=== PATIENT | male | born 1930 | race Caucasian/White ===

== ENCOUNTER 2020-06-17 13:38 | Emergency (ER) | payer MEDICARE ==
[~2020-06-17] VITALS: Ht 180.3 cm; Wt 75.0 kg
[2020-06-17 13:38] VITALS: BP 189/83
[2020-06-17] MEDS ORDERED: OXYBUTYNIN CHLORIDE 5 MG TABLET PO SCH (15:30)
[2020-06-17] MEDS ORDERED: ACETAMINOPHEN 500 MG TABLET PO ONE (15:30)
[2020-06-17 15:38] LABS: BILIRUBIN,URINE NEGATIVE (NEG); CLARITY,URINE CLOUDY; COLOR,URINE YELLOW; NITRITE,URINE NEGATIVE (NEG); PH,URINE 6.5 (<5.0-8.0); PROTEIN,URINE 100 mg/dL (NEG-TRACE); UROBILINOGEN,URINE 0.2 mg/dL (0.2 mg/dL)
--- NOTE | 2020-06-17 15:50 | ED.ADGEN ---
Past Medical History Past Medical History: CAD, Cancer, COPD, Diabetes-Type II, Hypertension, Other Additional Past Medical Histor: BLADDER CA Past Surgical History: Appendectomy, Other Additional Past Surgical Histo: SUPRAPUBIC CATH, R. ROTATOR CUFF Smoking Status: Former Smoker Alcohol Use: None General Adult EDM: Chief Complaint: URINE CATHETER PROBLEM HPI: HPI: Patient is an 89-year-old male who presents to the emergency room with a clogged suprapubic catheter. Patient last had it changed 2 weeks ago. He has had the catheter for the last 3 years. He states that occasionally it will get clogged before its normal change date. He does changed every 3 weeks. He is having some suprapubic abdominal pain. He denies any other complaints at this time. Review of Systems: Review of Systems: Complete ROS is negative unless otherwise documented in HPI Current Medications: Current Medications Medications (Trade) Dose Ordered Sig/Bárbara Start Time Stop Time Status Last Admin Dose Admin Acetaminophen (Tylenol) 1,000 mg 1X ONCE 06/17/20 15:30 06/17/20 15:31 DC Oxybutynin Chloride (Ditropan) 5 mg 1X 06/17/20 15:30 Allergies: Allergies: Allergies Coded Allergies Type Severity Reaction Last Updated Verified No Known Drug Allergies 06/17/20 No Physical Exam: PE: General: Awake, alert, NAD. Well Nourished, well hydrated. Cooperative HEENT: Atraumatic, EOMI, PERRL, airway patent, moist oral mucosa Neck: Supple, trachea midline Respiratory: CTA bilaterally, normal effort, no wheezing/crackles CV: RRR, no murmur, cap refill <2 GI: Soft, distended bladder with tenderness upon palpation, nontender, no ma sses, suprapubic catheter in place MSK: No obvious deformities Skin: Warm, dry, intact Neuro: A&O x3, speech NL, sensory and motor grossly intact, no focal deficits Psych: Normal affect, normal mood, not suicidal or homicidal Current Patient Data: Labs: Laboratory Tests Test 06/17/20 15:25 Urine Collection Type Unknown Urine Color Yellow Urine Clarity Cloudy Urine pH 6.5 (<5.0-8.0) Urine Specific [place] 1.015 (1.000-1.030) Urine Protein 100 mg/dL (NEG-TRACE) Urine Glucose (UA) Negative mg/dL (NEG) Urine Ketones (Stick) Negative mg/dL (NEG) Urine Blood Moderate (NEG) Urine Nitrite Negative (NEG) Urine Bilirubin Negative (NEG) Urine Urobilinogen Dipstick 0.2 mg/dL (0.2 mg/dL) Urine Leukocyte Esterase Large (NEG) Urine RBC 20-40 /HPF (0-2) Urine WBC Tntc /HPF (0-4) Urine Bacteria 0 /HPF (0-FEW) Vital Signs: Vital Signs Date Time Temp Pulse Resp B/P (MAP) Pulse Ox O2 Delivery O2 Flow Rate FiO2 06/17/20 13:38 97.7 74 20 189/83 (118) 98 Room Air 97.7 EKG: EKG: [] Heart Score: Risk Factors: Risk Factors: DM, Current or recent (<one month) smoker, HTN, HLP, family history of CAD, obesity. Risk Scores: Score 0 - 3: 2.5% MACE over next 6 weeks - Discharge Home Score 4 - 6: 20.3% MACE over next 6 weeks - Admit for Clinical Observation Score 7 - 10: 72.7% MACE over next 6 weeks - Early Invasive Strategies Radiology/Procedures: Radiology/Procedures: [] Course & Med Decision Making: Course & Med Decision Making Pertinent Labs and Imaging studies reviewed. (See chart for details) Patient is an 89-year-old male who presents to the emergency room complaining of suprapubic abdominal pain and a clogged suprapubic catheter. Upon my evaluation patient does have a clogged catheter. Unable to flush it at this time. New catheter was placed without difficulty. Around 500 mL drained from the bladder after suprapubic catheter was placed. He did have some bladder sp asms after suprapubic catheter is placed but does not have any additional pain afterwards. There is no difficulty with placing the catheter. Patient's test results and vitals while in the ED were fully reviewed and discussed with the patient. Patient is stable and at this time does not need admission to the hospital. We have discussed strict return precautions and the importance of following up with their Primary Care Physician. Patient stated understanding and was given an opportunity to ask any questions. Patient is in agreement with plan. Tirso Disclaimer: Tirso Disclaimer: This electronic medical record was generated, in whole or in part, using a voice recognition dictation system. Departure Departure Impression: Primary Impression: Suprapubic catheter dysfunction Disposition: 01 DC HOME SELF CARE/HOMELESS Condition: STABLE Referrals: JONES UREÑA MD (PCP) Patient Instructions: Suprapubic Catheter Home Guide, Suprapubic Catheter Replacement, Care After Scripts Nitrofurantoin Monohyd/M-Cryst (MACROBID 100 MG CAPSULE) 100 Mg Capsule 1 CAP PO BID for 5 Days, #10 CAP 0 Refills Prov: MARY VALDEZ MD 06/17/20 MARY VALDEZ MD Jun 17, 2020 15:50
[2020-06-17 15:55] LABS: BACTERIA,URINE 0 /HPF (0-FEW); RBC,URINE 20-40 /HPF (0-2); WBC,URINE TNTC /HPF (0-4)
[2020-06-17] MEDS ORDERED: NITR100C62 PO (16:16)
== END 2020-06-17 17:24 | disposition home or self-care (01) ==
LOC: ER 13:38
DX: R10.2 Pelvic and perineal pain (principal); J44.9 Chronic obstructive pulmonary disease, unspecified; E11.9 Type 2 diabetes mellitus without complications; I10 Essential (primary) hypertension; Z90.89 Acquired absence of other organs; Z98.890 Other specified postprocedural states; Z87.891 Personal history of nicotine dependence
CPT/HCPCS: 81001; 99284

== ENCOUNTER 2020-08-15 19:02 | Emergency (ER) | payer MEDICARE ==
[~2020-08-15] VITALS: Ht 180.3 cm; Wt 71.4 kg
[~2020-08-15 19:02] MED LIST: NITR100C62 PO
[2020-08-15 19:57] LABS: BILIRUBIN,URINE NEGATIVE (NEG); CLARITY,URINE CLOUDY; COLOR,URINE YELLOW; NITRITE,URINE POSITIVE (NEG); PH,URINE 7.5 (<5.0-8.0); PROTEIN,URINE 100 mg/dL (NEG-TRACE)
--- NOTE | 2020-08-15 20:06 | PHYS DOC ---
Past Medical History Past Medical History: CAD, Cancer, COPD, Diabetes-Type II, Hypertension, Other Additional Past Medical Histor: BLADDER CA Past Surgical History: Appendectomy, Other Additional Past Surgical Histo: SUPRAPUBIC CATH, R. ROTATOR CUFF Smoking Status: Former Smoker Alcohol Use: None General Adult EDM: Chief Complaint: URINE CATHETER PROBLEM HPI: HPI: Patient is a 89 year old male past medical history of indwelling Sainz catheter presents with a chief complaint of suprapubic Sainz catheter dysfunction. Patient states around 1430 hrs. Sainz catheter would not drain. Patient had associated suprapubic abdominal pressure. On arrival nursing attempted to flush the Sainz and was unsuccessful. Sainz was replaced by nursing patient had urine drainage and immediate relief of pain. No history of fevers or chills. Review of Systems: Review of Systems: Constitutional: Denies fever or chills. [] Eyes: Denies change in visual acuity. [] HENT: Denies nasal congestion or sore throat. [] Respiratory: Denies cough or shortness of breath. [] Cardiovascular: Denies chest pain or edema. [] GI: Denies abdominal pain, nausea, vomiting, bloody stools or diarrhea. [] : Denies dysuria. [] Positive urinary retention Musculoskeletal: Denies back pain or joint pain. [] Integument: Denies rash. [] Neurologic: Denies headache, focal weakness or sensory changes. [] Endocrine: Denies polyuria or polydipsia. [] Lymphatic: Denies swollen glands. [] Psychiatric: Denies depression or anxiety. [] Heart Score: C/O Chest Pain: N/A Risk Factors: Risk Factors: DM, Current or recent (<one month) smoker, HTN, HLP, family history of CAD, obesity. Risk Scores: Score 0 - 3: 2.5% MACE over next 6 weeks - Discharge Home Score 4 - 6: 20.3% MACE over next 6 weeks - Admit for Clinical Observation Score 7 - 10: 72.7% MACE over next 6 weeks - Early Invasive Strategies Allergies: Allergies: Allergies Coded Allergies Type Severity Reaction Last Updated Verified No Known Drug Allergies 06/17/20 No Physical Exam: PE: General: alert, no acute distress. Skin: warm, dry and intact. Head:: Normocephalic, atraumatic. Neck: Trachea midline. Eyes: EOMI, Normal conjunctiva, No drainage CARDIOVASCULAR: Regular rate and rhythm RESPIRATORY: No respiratory distress Back: Full range of motion. MUSCULOSKELETAL: Full range of motion of bilateral upper and lower extremities. GASTROINTESTINAL: Abdomen soft without rebound or guarding. Positive suprapubic tenderness NEUROLOGICAL: Alert and noted to person, place and time. No neurological deficits observed Psychiatric: Cooperative. Normal judgment Current Patient Data: Vital Signs: Vital Signs Date Time Temp Pulse Resp B/P (MAP) Pulse Ox O2 Delivery O2 Flow Rate FiO2 08/15/20 19:15 98.1 67 34 195/95 (128) 98 Room Air 98.1 EKG: EKG: [] Radiology/Procedures: Radiology/Procedures: [] Course & Med Decision Making: Course & Med Decision Making Pertinent Labs and Imaging studies reviewed. (See chart for details) [] Dragon Disclaimer: Dragon Disclaimer: This electronic medical record was generated, in whole or in part, using a voice recognition dictation system. Departure Departure Impression: Primary Impression: Obstructed Sainz catheter Disposition: HOME / SELF CARE / HOMELESS Condition: STABLE Referrals: JONES UREÑA MD (PCP) Patient Instructions: Sainz Catheter Care, Adult LAVELL GRACIA DO Aug 15, 2020 20:06
[2020-08-15 20:14] LABS: BACTERIA,URINE MANY /HPF (0-FEW); WBC,URINE TNTC /HPF (0-4)
[2020-08-15 20:22] VITALS: BP 200/85
== END 2020-08-15 20:33 | disposition home or self-care (01) ==
LOC: ER 19:02
DX: T83.091A Other mechanical complication of indwelling urethral catheter, initial encounter (principal); I11.9 Hypertensive heart disease without heart failure; J44.9 Chronic obstructive pulmonary disease, unspecified; E11.9 Type 2 diabetes mellitus without complications; Z90.89 Acquired absence of other organs; Z98.890 Other specified postprocedural states; Z87.891 Personal history of nicotine dependence; Z85.9 Personal history of malignant neoplasm, unspecified; Y92.89 Other specified places as the place of occurrence of the external cause
CPT/HCPCS: 51702; 81001; 87086; 99283

== ENCOUNTER 2021-03-07 18:26 | Emergency (ER) | payer MEDICARE ==
[~2021-03-07] VITALS: Ht 182.9 cm; Wt 71.0 kg
[2021-03-07 20:43] LABS: BILIRUBIN,URINE NEGATIVE (NEG); CLARITY,URINE TURBID; COLOR,URINE YELLOW; NITRITE,URINE POSITIVE (NEG); PROTEIN,URINE >=300 mg/dL (NEG-TRACE); UROBILINOGEN,URINE 0.2 mg/dL (0.2 mg/dL)
[2021-03-07 20:52] LABS: AMORPHOUS SEDIMENT,UR PRESENT /HPF; HYALINE CASTS, URINE MODERATE /HPF
[2021-03-07 20:53] LABS: BACTERIA,URINE MANY /HPF (0-FEW); RBC,URINE 20-40 /HPF (0-2); WBC,URINE >40 /HPF (0-4)
[2021-03-07] MEDS ORDERED: CIPROFLOXACIN HCL 250 MG TABLET. PO ONE (21:15)
[2021-03-07] MEDS ORDERED: LEVO750T5 PO (21:24)
[2021-03-07] MEDS ORDERED: CIPR500T94 PO (21:24)
--- NOTE | 2021-03-07 21:24 | PHYS DOC ---
Past Medical History Past Medical History: CAD, Cancer, COPD, Diabetes-Type II, Hypertension, Other Additional Past Medical Histor: BLADDER CA Past Surgical History: Appendectomy, Other Additional Past Surgical Histo: SUPRAPUBIC CATH, R. ROTATOR CUFF Smoking Status: Former Smoker Alcohol Use: None General Adult EDM: Chief Complaint: URINE CATHETER PROBLEM HPI: HPI: Patient is a 89-year-old male presents emergency department with chief complaint of obstructed suprapubic catheter. Patient reports his catheter has become obstructed 4 times this month and this makes it the fifth time. Patient reports he sees urology care at but did not want a wait in the emergency department all night tonight. Patient reports he decided to come to the emergency department at [place] instead. Patient reports mild abdominal discomfort stating he feels as if his bladder is distended. Patient denies nausea, vomiting, diarrhea. Patient denies chest pains recent fever or chills, shortness of breath, or other physical complaints or physical concerns. Patient states the last time he had an obstruction he was told his urine was not infected and is currently not on any antibiotics. Review of Systems: Review of Systems: 14 body systems of review of systems have been reviewed. See HPI for pertinent positives and negative responses, otherwise all other systems are negative, nonpertinent or noncontributory. Constitutional: Negative except as outlined in HPI above. Skin: Negative except as outlined in HPI above. Eyes: Negative except as outlined in HPI above. HENT: Negative except as outlined in HPI above. Respiratory: Negative except as outlined in HPI above. Cardiovascular: Negative except as outlined in HPI above. GI: Negative except as outlined in HPI above. : Negative except as outlined in HPI above. Musculoskeletal: Negative except as outlined in HPI above. Integument: Negative except as outlined in HPI above. Neurologic: Negative except as outlined in HPI above. Endocrine: Negative except as outlined in HPI above. Lymphatic: Negative except as outlined in HPI above. Psychiatric: Negative except as outlined in HPI above. Heart Score: C/O Chest Pain: No Risk Factors: Risk Factors: DM, Current or recent (<one month) smoker, HTN, HLP, family history of CAD, obesity. Risk Scores: Score 0 - 3: 2.5% MACE over next 6 weeks - Discharge Home Score 4 - 6: 20.3% MACE over next 6 weeks - Admit for Clinical Observation Score 7 - 10: 72.7% MACE over next 6 weeks - Early Invasive Strategies Current Medications: Current Medications Medications (Trade) Dose Ordered Sig/[facility] Start Time Stop Time Status Last Admin Dose Admin Ciprofloxacin (Cipro) 500 mg 1X ONCE 03/07/21 21:15 03/07/21 21:16 Allergies: Allergies: Allergies Coded Allergies Type Severity Reaction Last Updated Verified No Known Drug Allergies 06/17/20 No Physical Exam: PE: Constitutional: Well developed, well nourished, no acute distress, non-toxic appearance. 89-year-old male in no apparent distress. HENT: Normocephalic, atraumatic. Eyes: Conjunctiva normal, no discharge. Neck: Normal range of motion, no stridor. Cardiovascular: No cyanosis appreciated, distal cap refill less than 2 seconds. Lungs & Thorax: Patient is in no respiratory distress, no audible adventitious lung sounds appreciated. Abdomen: Tender to palpation over bladder area, patient has suprapubic catheter without infectious process appreciated at stoma, catheter draining into leg bag. Skin: Warm, dry, no erythema, no rash. Back: No tenderness, no deformities. Extremities: No tenderness, no cyanosis, no clubbing, ROM intact, no edema. Neurologic: Alert and oriented X 3, normal motor function, normal sensory function, no focal deficits noted. Psychologic: Affect normal, judgement normal, mood normal. Current Patient Data: Labs: Laboratory Tests Test 03/07/21 20:15 Urine Collection Type Unknown Urine Color Yellow Urine Clarity Turbid Urine pH 8.0 (<5.0-8.0) Urine Specific [place] 1.015 (1.000-1.030) Urine Protein >=300 mg/dL (NEG-TRACE) Urine Glucose (UA) 100 mg/dL (NEG) Urine Ketones (Stick) Negative mg/dL (NEG) Urine Blood Moderate (NEG) Urine Nitrite Positive (NEG) Urine Bilirubin Negative (NEG) Urine Urobilinogen Dipstick 0.2 mg/dL (0.2 mg/dL) Urine Leukocyte Esterase Large (NEG) Urine RBC 20-40 /HPF (0-2) Urine WBC >40 /HPF (0-4) Urine Squamous Epithelial Cells Few /LPF Urine Amorphous Sediment Present /HPF Urine Bacteria Many /HPF (0-FEW) Urine Hyaline Casts Moderate /HPF Vital Signs: Vital Signs Date Time Temp Pulse Resp B/P (MAP) Pulse Ox O2 Delivery O2 Flow Rate FiO2 03/07/21 19:54 97.7 20 20 175/76 (109) 97 Room Air 97.7 EKG: EKG: [] Radiology/Procedures: Radiology/Procedures: [] Course & Med Decision Making: Course & Med Decision Making Pertinent Labs and Imaging studies reviewed. (See chart for details) 89-year-old male, vital signs reviewed, presents emergency department concerning obstruction of Sainz from suprapubic catheter. Suprapubic catheter was changed by myself, 600 cc cloudy urine return, urinalysis assay sent. Patient reports immediate relief after Sainz was replaced. Patient's urine is infected, discussed with patient will start on antibiotic, patient is amenable to ED planning. Discussed with patient strict follow-up with primary care for ongoing evaluation of urinary tract infection, follow-up with urology related to urinary tract infection and repeated Sainz obstructions. The patient gave verbal understanding of and is amenable to ED discharge planning. Discussed with the patient all findings and diagnostic testing as well as the need to follow-up with their primary care provider for further evaluation and treatment or return to the ED if any new or worsening symptoms. Strict return precautions were also discussed at length, the patient voiced understanding and agreement with the discharge planning. The patient was nontoxic in appearance, in no apparent distress, and hemodynamically stable at the time of disposition. Dragon Disclaimer: Dragon Disclaimer: This electronic medical record was generated, in whole or in part, using a voice recognition dictation system. Departure Departure Impression: Primary Impression: Encounter for Sainz catheter replacement Additional Impression: Urinary tract infection Qualified Codes: N30.01 - Acute cystitis with hematuria Disposition: HOME / SELF CARE / HOMELESS Condition: GOOD Referrals: JONES UREÑA MD (PCP) Patient Instructions: Indwelling Urinary Catheter Care-Brief, Urinary Tract Infection Additional Instructions: You were seen today in the emergency department for problems with your indwelling suprapubic catheter. It had appeared that it was obstructed in someway, it was replaced with a 16 [place] indwelling Sainz catheter. A urinalysis assay was concerning for a urinary tract infection. As we discussed I have started you on your first dose of your antibiotic regimen today. I have written a prescription for ciprofloxacin. While this is the medication I would prefer, there are some pharmacies that have had a hard time stocking this medication recently. Therefore I have written a second prescription called Levaquin which you can fill in the event the ciprofloxacin is unavailable. You do not need to take both antibiotics. If your prescription for ciprofloxacin is filled, simply tear up and throw away the prescription for the Levaquin. Please call your primary care physician to let them know of your urinary tract infection so that you can have close follow-up to ensure you are on the correct antibiotic. Return to the emergency department for worsening symptoms or other concerns. Thank you for visiting our Emergency Department. It was a pleasure taking care of you today in the emergency department and we appreciate you trusting us with your care. If any additional problems come up don't hesitate to return to visit us. Please follow up with your primary care provider so they can plan additional care if needed and know about the problem that you had. If symptoms worsen come back to the Emergency Department. Any concerning symptoms that start such as chest pain, shortness of air, weakness or numbness on one side of the body, running high fevers or any other concerning symptoms return to the ER. EMERGENCY DEPARTMENT GENERAL DISCHARGE INSTRUCTIONS Thank you for coming to [facility] Emergency Department (ED) today and trusting us with you care. We trust that you had a positive experience in our Emergency Department. If you wish to speak to the department management, you may call the Director at [phone]. YOUR FOLLOW UP INSTRUCTIONS ARE FOLLOWS: 1. Do you have a private Doctor? If you do not have a private doctor, please ask for a resource list of physicians or clinics that may be able to assist you with follow up care. 2. The Emergency Physicain has interpreted your x-rays. The X-Ray specialist will also review them. If there is a change in the findings, you will be notified in 48 hours when at all possible. 3. A lab test or culture has been done, your results will be reviewed and you will be notified if you need a change in treatment. ADDITIONAL INSTRUCTIONS AND INFORMATION: 1. Your care today has been supervised by a physician who is specially trained in emergency care. Many problems require more than one evaluation for a complete diagnosis and treatment. We recommend that you schedule your follow up appointment as recommended to ensure complete treatment of you illness or injury. If you are unable to obtain follow up care and continue to have a problem, or if your condition worsens, we recommend that you return to the ED. 2. We are not able to safely determine your condition over the phone nor are we able to give sound medical advice over the phone. For these safety reasons, if you call for medical advice we will ask you to come to the ED for further evaluation. 3. If you have any questions regarding these discharge instructions please call the ED at [phone]. SAFETY INFORMATION: In the interest of safety, wellness, and injury prevention; we encourage you to wear your sealbelt, if you smoke; quite smoking, and we encourage family to use a protective helmet for bicycling and other sporting events that present an increased risk for head injury. IF YOUR SYMPTOMS WORSEN OR NEW SYMPTOMS DEVELOP, OR YOU HAVE CONCERNS ABOUT YOUR CONDITION; OR IF YOUR CONDITION WORSENS WHILE YOU ARE WAITING FOR YOUR FOLLOW UP SHALOM OINTMENT; EITHER CONTACT YOUR PRIMARY CARE DOCTOR, THE PHYSICIAN WHOSE NAME AND NUMBER YOU WERE GIVEN, OR RETURN TO THE ED IMMEDIATELY. Scripts Levofloxacin (LEVOFLOXACIN) 750 Mg Tablet 1 TAB PO DAILY for urinary tract infection, #5 TAB 0 Refills Prov: MARILEE HAIR APRN 03/07/21 Ciprofloxacin Hcl (CIPRO) 500 Mg Tablet 1 TAB PO BID for urinary tract infection for 7 Days, #14 TAB 0 Refills Prov: MARILEE HAIR APRN 03/07/21 MARILEE HAIR APRN Mar 07, 2021 21:24
[2021-03-07 21:43] VITALS: BP 206/88
== END 2021-03-07 22:05 | disposition home or self-care (01) ==
LOC: ER 18:26
DX: T83.090A Other mechanical complication of cystostomy catheter, initial encounter (principal); J44.9 Chronic obstructive pulmonary disease, unspecified; E11.9 Type 2 diabetes mellitus without complications; I10 Essential (primary) hypertension; I25.10 Atherosclerotic heart disease of native coronary artery without angina pectoris; Z87.891 Personal history of nicotine dependence; Z90.89 Acquired absence of other organs; Y82.8 Other medical devices associated with adverse incidents; Y92.89 Other specified places as the place of occurrence of the external cause
CPT/HCPCS: 51702; 81001; 87086; 99284

== ENCOUNTER 2021-08-20 15:45 | Emergency (ER) | payer MEDICARE ==
[~2021-08-20] VITALS: Ht 180.3 cm; Wt 74.0 kg
[~2021-08-20 15:45] MED LIST changes: +CIPR500T94 PO; +LEVO750T5 PO
[2021-08-20 15:59] VITALS: BP 164/100
--- NOTE | 2021-08-20 16:14 | RAD ---
Three-view right hand HISTORY: Laceration status post fall AP lateral oblique views There is a small lytic lesion in the lateral cortex at the base of the little finger. The remaining v isualized osseous structures appear grossly intact. As no fracture seen. There is mild degenerative c hanges. There is no radiopaque foreign body. IMPRESSION: 1. Small lytic lesion in the lateral cortex of the proximal portion of the little finger. This could be a a cortical cyst. 2. No acute findings. Electronically signed by: Garland Elliott III, MD (08/20/2021 4:12 PM) [facility]
--- NOTE | 2021-08-20 16:17 | PHYS DOC ---
Past Medical History Past Medical History: CAD, Cancer, COPD, Diabetes-Type II, Hypertension, Other Additional Past Medical Histor: BLADDER CA Past Surgical History: Other Additional Past Surgical Histo: UNKNOWN SX HX Smoking Status: Former Smoker Alcohol Use: None General Adult EDM: Chief Complaint: MECHANICAL FALL HPI: HPI: Patient is a 89 year old male with history of diabetes type 2, hypertension, CAD, presenting to the ED today to be evaluated after falling. Patient states at assisted living, he states he was walking, his shoes got caught on the carpet and fell hitting his head on the floor. Denies any loss of consciousness, denies being on any blood thinners, denies any neck pain, denies mid or low back pain. Reports a contusion on the right side of his head as well as skin tear on the right hand. Review of Systems: Review of Systems: Constitutional: Denies fever or chills. [] Eyes: Denies change in visual acuity. [] HENT: Denies nasal congestion or sore throat. [] Respiratory: Denies cough or shortness of breath. [] Cardiovascular: Denies chest pain or edema. [] GI: Denies abdominal pain, nausea, vomiting, bloody stools or diarrhea. [] : Denies dysuria. [] Musculoskeletal: Denies back pain or joint pain. [] Integument: Reports right hand skin tear Neurologic: Reports falling and hitting his head on the ground, right scalp contusion, denies headache, focal weakness or sensory changes. [] Psychiatric: Denies depression or anxiety. [] Heart Score: C/O Chest Pain: N/A Risk Factors: Risk Factors: DM, Current or recent (<one month) smoker, HTN, HLP, family history of CAD, obesity. Risk Scores: Score 0 - 3: 2.5% MACE over next 6 weeks - Discharge Home Score 4 - 6: 20.3% MACE over next 6 weeks - Admit for Clinical Observation Score 7 - 10: 72.7% MACE over next 6 weeks - Early Invasive Strategies Allergies: Allergies: Allergies Coded Allergies Type Severity Reaction Last Updated Verified No Known Drug Allergies 06/17/20 No Physical Exam: PE: Constitutional: Well developed, well nourished, no acute distress, non-toxic appearance. [] HENT: Normocephalic, atraumatic, bilateral external ears normal, oropharynx moist, no oral exudates, nose normal. [] Eyes: PERRLA, EOMI, conjunctiva normal, no discharge. [] Neck: Normal range of motion, no tenderness, supple, no stridor. [] Cardiovascular:Heart rate regular rhythm, no murmur [] Lungs & Thorax: Bilateral breath sounds clear to auscultation [] Abdomen: Bowel sounds normal, soft, no tenderness, no masses, no pulsatile masses. Sainz in place Skin: Right dorsal hand between the webspace of the knuckle and the ring finger with a skin tear roughly 3 cm long, there is no obvious tendon involvement. Full range of motion to the right hand and fingers, adequate radial, medial, ulnar sensation to the right hand. +2 right radial pulse. Cap refill less than 2 seconds to right fingers Back: No tenderness, no CVA tenderness. [] Extremities: No tenderness, no cyanosis, no clubbing, ROM intact, no edema. [] Neurologic: Right parietal scalp with a small contusion, alert and oriented X 3, normal motor function, normal sensory function, no focal deficits noted. Cranial nerves II through XII intact Psychologic: Affect normal, judgement normal, mood normal. [] Current Patient Data: Vital Signs: Vital Signs Date Time Temp Pulse Resp B/P (MAP) Pulse Ox O2 Delivery O2 Flow Rate FiO2 08/20/21 15:59 98.3 52 16 164/100 (121) 95 Room Air 98.3 EKG: EKG: [] Radiology/Procedures: Radiology/Procedures: []PROCEDURE: HAND RIGHT 3V Three-view right hand HISTORY: Laceration status post fall AP lateral oblique views There is a small lytic lesion in the lateral cortex at the base of the little finger. The remaining visualized osseous structures appear grossly intact. As no fracture seen. There is mild degenerative changes. There is no radiopaque foreign body. IMPRESSION: 1. Small lytic lesion in the lateral cortex of the proximal portion of the little finger. This could be a a cortical cyst. 2. No acute findings. Electronically signed by: Davin Frazier III, MD (08/20/2021 4:12 PM) [facility] DICTATED and SIGNED BY: DAVIN FRAZIER III, MD DATE: 08/20/21 1610 PROCEDURE: CT HEAD AND CERVICAL SPINE WO Exam: CT head and cervical spine INDICATION: Fall, head injury TECHNIQUE: Sequential axial images through the head and cervical spine were obtained without the administration of IV contrast. Exposure: One or more of the following in the visualized dose reduction techniques were utilized for this examination: 1. Automated exposure control 2. Adjustment of the MA and/or KV according to patient size 3. Use of iterative of reconstructive technique Comparisons: None FINDINGS: Head: No focal parenchymal lesion or hemorrhage is identified. There is no midline shift or sulcal effacement. Mild patchy hypodensity in the periventricular white matter. No acute vascular territory infarction is identified. Mclain-white distinction is preserved. The ventricular system is within normal limits without compression hydrocephalus. The basal cisterns are well maintained. The visualized portions of the paranasal sinuses and mastoid air cells are well- pneumatized. No acute fractures. Cervical spine: Vertebral body heights are well-maintained. Grade 1 anterolisthesis of C2 over C3. Fracture to the cervical spine is not identified. Mild multilevel spondylotic change in the cervical spine with degenerative disc disease greatest at C3-C4 and C7-T1. Mild bilateral facet arthropathy is also noted in the cervical spine. Visualized paraspinal soft tissues are unremarkable. IMPRESSION: 1. No acute intracranial abnormality. 2. Negative CT C-spine for acute traumatic injury. Electronically signed by: Abby Sun MD (08/20/2021 4:27 PM) [facility] DICTATED and SIGNED BY: ABBY SUN MD DATE: 08/20/21 1621 Course & Med Decision Making: Course & Med Decision Making Pertinent Labs and Imaging studies reviewed. (See chart for details) This 89-year-old male patient presenting to the ED today to be evaluated after falling. No loss of consciousness, has a small contusion on the right parietal scalp. Has a skin tear on the right dorsal hand. Tetanus is up-to-date. Right hand x-rays interpreted by radiologist noted for small lytic lesion in the lateral cortex of the proximal portion of the little finger. This could be a a cortical cyst. No acute findings. CT of the head and cervical spine are negative for any acute findings. Patient's laceration/skin tear was closed in the ED, discharged to home. Follow-up with PCP in 1 week. Tirso Disclaimer: Tirso Disclaimer: This electronic medical record was generated, in whole or in part, using a voice recognition dictation system. Departure Departure Impression: Primary Impression: Fall from standing Qualified Codes: W19.XXXA - Unspecified fall, initial encounter Additional Impressions: Scalp contusion Qualified Codes: S00.03XA - Contusion of scalp, initial encounter Skin tear of hand without complication Qualified Codes: S61.411A - Laceration without foreign body of right hand, initial encounter Disposition: HOME / SELF CARE / HOMELESS Condition: STABLE Referrals: NON,STAFF (PCP) Follow-up with your primary care doctor in the next 7 days Patient Instructions: Facial or Scalp Contusion, [id number], Fall Prevention and Home Safety, Skin Tear Care Additional Instructions: You were evaluated in the emergency room after falling, your CT of the head, cervical spine are negative for any acute findings, your right hand x-rays are negative for any acute findings. You have a cyst on your right pinky finger, follow-up with your primary care doctor for this. Keep the skin tear clean and dry. Come back to the ED at any point you have concerning symptoms ABHINAV SALAS GEODESIST Aug 20, 2021 16:16
--- NOTE | 2021-08-20 16:29 | RAD ---
Exam: CT head and cervical spine INDICATION: Fall, head injury TECHNIQUE: Sequential axial images through the head and cervical spine were obtained without the admi nistration of IV contrast. Exposure: One or more of the following in the visualized dose reduction techniques were utilized for this examination: 1. Automated exposure control 2. Adjustment of the MA and/or KV according to patient size 3. Use of iterative of reconstructive technique Comparisons: None FINDINGS: Head: No focal parenchymal lesion or hemorrhage is identified. There is no midline shift or sulcal effaceme nt. Mild patchy hypodensity in the periventricular white matter. No acute vascular territory infarction i s identified. Mclain-white distinction is preserved. The ventricular system is within normal limits without compression hydrocephalus. The basal cisterns are well maintained. The visualized portions of the paranasal sinuses and mastoid air cells are well-pneumatized. No acute fractures. Cervical spine: Vertebral body heights are well-maintained. Grade 1 anterolisthesis of C2 over C3. Fracture to the cervical spine is not identified. Mild multilevel spondylotic change in the cervical spine with degenerative disc disease greatest at C 3-C4 and C7-T1. Mild bilateral facet arthropathy is also noted in the cervical spine. Visualized paraspinal soft tissues are unremarkable. IMPRESSION: 1. No acute intracranial abnormality. 2. Negative CT C-spine for acute traumatic injury. Electronically signed by: Abby Montilla MD (08/20/2021 4:27 PM) [facility]
== END 2021-08-20 17:12 | disposition home or self-care (01) ==
LOC: ER 15:45
DX: S61.411A Laceration without foreign body of right hand, initial encounter (principal); S00.03XA Contusion of scalp, initial encounter; E11.9 Type 2 diabetes mellitus without complications; I10 Essential (primary) hypertension; J44.9 Chronic obstructive pulmonary disease, unspecified; I25.10 Atherosclerotic heart disease of native coronary artery without angina pectoris; Z87.891 Personal history of nicotine dependence; W18.39XA Other fall on same level, initial encounter; Y93.89 Activity, other specified; Y92.89 Other specified places as the place of occurrence of the external cause; Y99.8 Other external cause status
CPT/HCPCS: 70450; 72125; 73130; 99284-25

== ENCOUNTER 2021-09-18 22:10 | Emergency (ER) | payer MEDICARE ==
[~2021-09-18] VITALS: Ht 180.3 cm; Wt 72.7 kg
[2021-09-18] MEDS ORDERED: ASPIRIN CHEWABLE 81 MG TABLET. PO ONE (22:30)
--- NOTE | 2021-09-18 23:01 | RAD ---
EXAMINATION: XR CHEST 1V CLINICAL HISTORY: Chest/left upper quadrant pain. EXAM DATE/TIME: 09/18/2021 10:35 PM COMPARISON: None FINDINGS: Lines, Tubes, and Devices: None. Cardiomediastinal Silhouette: Normal heart size. Aortic atherosclerotic calcification. Lungs and Pleura: No evidence of focal airspace consolidation, pleural effusion, or pneumothorax. Lef t basilar old calcified granuloma. Bones and Soft Tissues: Degenerative changes in the thoracic spine. IMPRESSION: No evidence of acute cardiopulmonary abnormality. Electronically signed by: Cezar Arriaga DO (09/18/2021 10:59 PM) [facility]
[2021-09-18 23:10] LABS: CALCIUM 8.9 mg/dL (8.5-10.1); CREATININE 1.8 mg/dL (0.7-1.3); GFR 35.7; POTASSIUM 4.3 mmol/L (3.5-5.1)
[2021-09-18 23:16] LABS: BASO % 0 % (0-3); EOS # 0.5 x10^3/uL (0.0-0.7); EOS % 5 % (0-3); HEMOGLOBIN 12.3 g/dL (13.0-17.5); LYMPH % 19 % (24-48); MEAN CORPUSCULAR HEMOGLOBIN 30 pg (25-35); MEAN CORPUSCULAR HGB CONC 33 g/dL (31-37); MEAN CORPUSCULAR VOLUME 89 fL (79-100); MONO # 1.1 x10^3/uL (0.0-1.1); MONO % 10 % (0-9); NEUT # 7.3 x10^3/uL (1.8-7.7); NEUT % 67 % (31-73); PLATELET COUNT 134 x10^3/uL (140-400); RED BLOOD COUNT 4.16 x10^6/uL (4.30-5.70); RED CELL DISTRIBUTION WIDTH 15.4 % (11.5-14.5); TOTAL BILIRUBIN 0.4 mg/dL (0.2-1.0); TOTAL PROTEIN 7.1 g/dL (6.4-8.2)
[2021-09-18 23:30] LABS: ALBUMIN 3.1 g/dL (3.4-5.0); ALBUMIN/GLOBULIN RATIO 0.8 (1.0-1.7)
[2021-09-18 23:47] LABS: BACTERIA,URINE MOD /HPF (0-FEW); WBC,URINE >40 /HPF (0-4)
--- NOTE | 2021-09-18 23:54 | RAD ---
Exam: CT of abdomen and pelvis without contrast INDICATION: Left upper quadrant pain, Back pain TECHNIQUE: Sequential axial images through the abdomen and pelvis obtained without IV contrast. Sagit guera and coronal reformatted images were reconstructed from the axial data and reviewed. Exposure: One or more of the following in the visualized dose reduction techniques were utilized for this examination: 1. Automated exposure control 2. Adjustment of the MA and/or KV according to patient size 3. Use of iterative of reconstructive technique Comparisons: None FINDINGS: Heart size is normal. No pericardial effusion. Visualized lung bases are clear. No pleural effusion. There is a 9 mm nodule in the left lung base series 2 image 13. Evaluation of solid organs limited secondary to noncontrast technique. Liver, spleen, pancreas and adrenals are unremarkable. Gallstone noted within the gallbladder. No perinephric inflammation or hydronephrosis. Cystic lesion at the kidneys bilaterally. No renal or ureteral calculi are identified. Bladder is decompressed. Suprapubic Sainz catheter balloon in the bladder. Prostate is not enlarged. Moderate amount of stool noted in the colon. Appendix is absent. No free intra-abdominal air or fluid . No obstruction. Abdominal aorta has normal course and caliber. Abdominal vasculature is patent. No enlarged intra-abdominal lymph nodes are identified. No suspicious osseous lesions or acute fractures. IMPRESSION: 1. Moderate amount stool noted in colon, correlate for constipation. 2. Cystic lesions the kidneys bilaterally favored represent simple cysts however incompletely charac terized on noncontrast exam. This can be better evaluated with nonemergent/outpatient renal protocol CT. 3. A 9 mm nodule at the left lung base. Recommend correlation with PET/CT, tissue sampling and/or 3 month follow-up chest CT. 4. Cholelithiasis Electronically signed by: Abby Montilla MD (09/18/2021 11:52 PM) [facility]
[2021-09-19] MEDS ORDERED: cefTRIAXone IV Push 1 GM VIAL. IVP ONE
[2021-09-19 01:25] LABS: PLT ESTIMATE DECREASED (ADEQUATE)
[2021-09-19 02:00] VITALS: BP 186/78
[2021-09-19] MEDS ORDERED: CEFD300C PO ×2 (02:04→02:18)
--- NOTE | 2021-09-19 02:04 | PHYS DOC ---
Past Medical History Past Medical History: CAD, Cancer, COPD, Diabetes-Type II, Hypertension, Other Past Surgical History: No Surgical History Additional Past Surgical Histo: UNKNOWN SX HX Smoking Status: Former Smoker Alcohol Use: None General Adult EDM: Chief Complaint: CHEST PAIN HPI: HPI: Patient is a 89 year old male who presents to the emergency department today with complaints of left upper quadrant pain. Patient states the pain began about 2 hours prior to arrival. He describes the pain as a pressure. It does not radiate. There are no palliative or provocative factors for the pain. He states is about a 5 out of 10. He denies any burning pain with urination. He denies any urinary frequency. He denies any nausea, vomiting or diarrhea. He denies any fevers or chills. He denies any shortness of breath. Patient denies any chest pain when asked where his pain is he points to his left upper quadrant. Review of Systems: Review of Systems: Constitutional: Denies fever or chills. [] Eyes: Denies change in visual acuity. [] HENT: Denies nasal congestion or sore throat. [] Respiratory: Denies cough or shortness of breath. [] Cardiovascular: Denies chest pain or edema. [] GI: Denies nausea, vomiting, bloody stools or diarrhea. [] : Denies dysuria. [] Musculoskeletal: Denies back pain or joint pain. [] Integument: Denies rash. [] Neurologic: Denies headache, focal weakness or sensory changes. [] Endocrine: Denies polyuria or polydipsia. [] Lymphatic: Denies swollen glands. [] Psychiatric: Denies depression or anxiety. [] Heart Score: C/O Chest Pain: No Family History: Family History: Noncontributory Current Medications: Current Medications Medications (Trade) Dose Ordered Sig/Bárbara Start Time Stop Time Status Last Admin Dose Admin Aspirin (Aspirin Chewable) 324 mg 1X ONCE 09/18/21 22:30 09/18/21 22:31 DC 09/18/21 22:42 324 MG Ceftriaxone Sodium (Rocephin) 1 gm 1X ONCE 09/19/21 00:00 09/19/21 00:01 DC 09/19/21 00:18 1 GM Allergies: Allergies: Allergies Coded Allergies Type Severity Reaction Last Updated Verified No Known Drug Allergies 06/17/20 No Physical Exam: PE: Constitutional: Well developed, well nourished, no acute distress, non-toxic appearance. [] HENT: Normocephalic, atraumatic, bilateral external ears normal, oropharynx moist, no oral exudates, nose normal. [] Eyes: PERRLA, EOMI, conjunctiva normal, no discharge. [] Neck: Normal range of motion, no tenderness, supple, no stridor. [] Cardiovascular:Heart rate regular rhythm, no murmur [] Lungs & Thorax: Bilateral breath sounds clear to auscultation [] Abdomen: Bowel sounds normal, soft, no tenderness, no masses, no pulsatile masses. [] Skin: Warm, dry, no erythema, no rash. [] Back: No tenderness, no CVA tenderness. [] Extremities: No tenderness, no cyanosis, no clubbing, ROM intact, no edema. [] Neurologic: Alert and oriented X 3, normal motor function, normal sensory function, no focal deficits noted. [] Psychologic: Affect normal, judgement normal, mood normal. [] Current Patient Data: Labs: Laboratory Tests Test 09/18/21 22:30 09/18/21 23:05 09/19/21 01:25 White Blood Count 11.0 x10^3/uL (4.0-11.0) Red Blood Count 4.16 x10^6/uL (4.30-5.70) L Hemoglobin 12.3 g/dL (13.0-17.5) L Hematocrit 37.0 % (39.0-53.0) L Mean Corpuscular Volume 89 fL (79-100) Mean Corpuscular Hemoglobin 30 pg (25-35) Mean Corpuscular Hemoglobin Concent 33 g/dL (31-37) Red Cell Distribution Width 15.4 % (11.5-14.5) H Platelet Count 134 x10^3/uL (140-400) L Neutrophils (%) (Auto) 67 % (31-73) Lymphocytes (%) (Auto) 19 % (24-48) L Monocytes (%) (Auto) 10 % (0-9) H Eosinophils (%) (Auto) 5 % (0-3) H Basophils (%) (Auto) 0 % (0-3) Neutrophils # (Auto) 7.3 x10^3/uL (1.8-7.7) Lymphocytes # (Auto) 2.0 x10^3/uL (1.0-4.8) Monocytes # (Auto) 1.1 x10^3/uL (0.0-1.1) Eosinophils # (Auto) 0.5 x10^3/uL (0.0-0.7) Basophils # (Auto) 0.0 x10^3/uL (0.0-0.2) Platelet Estimate Decreased (ADEQUATE) Large Platelets Occ Sodium Level 141 mmol/L (136-145) Potassium Level 4.3 mmol/L (3.5-5.1) Chloride Level 104 mmol/L (98-107) Carbon Dioxide Level 27 mmol/L (21-32) Anion Gap 10 (6-14) Blood Urea Nitrogen 20 mg/dL (8-26) Creatinine 1.8 mg/dL (0.7-1.3) H Estimated GFR (Cockcroft-Gault) 35.7 BUN/Creatinine Ratio 11 (6-20) Glucose Level 226 mg/dL (70-99) H Calcium Level 8.9 mg/dL (8.5-10.1) Total Bilirubin 0.4 mg/dL (0.2-1.0) Aspartate Amino Transferase (AST) 24 U/L (15-37) Alanine Aminotransferase (ALT) 13 U/L (16-63) L Alkaline Phosphatase 132 U/L (46-116) H Troponin I High Sensitivity 17 ng/L (4-75) 17 ng/L (4-75) MF-Gwy-Q-Type Natriuretic Peptide 837 pg/mL (0-449) H Total Protein 7.1 g/dL (6.4-8.2) Albumin 3.1 g/dL (3.4-5.0) L Albumin/Globulin Ratio 0.8 (1.0-1.7) L Lipase 92 U/L (73-393) Urine Collection Type Unknown Urine Color (Auto) Colorless Urine Turbidity Clear Urine pH (Auto) 7.0 (<5.0-8.0) Urine Specific [place] 1.004 (1.000-1.030) Urine Protein (Auto) 30 mg/dL (Negative) Urine Glucose (Auto)(UA) Negative mg/dL (Negative) Urine Ketones (Auto) Negative mg/dL (Negative) Urine Blood (Auto) Negative (Negative) Urine Nitrite (Auto) Negative (Negative) Urine Bilirubin (Auto) Negative (Negative) Urine Urobilinogen (Auto) Normal mg/dL (Normal) Urine Leukocyte Esterase (Auto) Moderate (Negative) Urine RBC 1-2 /HPF (0-2) Urine WBC >40 /HPF (0-4) Urine Squamous Epithelial Cells Few /LPF Urine Bacteria Mod /HPF (0-FEW) Laboratory Tests 09/18/21 22:30 Laboratory Tests 09/18/21 22:30 Vital Signs: Vital Signs Date Time Temp Pulse Resp B/P (MAP) Pulse Ox O2 Delivery O2 Flow Rate FiO2 09/19/21 01:30 42 12 191/81 (117) 100 09/18/21 22:12 97.7 Room Air 97.7 EKG: EKG: EKG shows a normal sinus rhythm with a rate of 47. Intervals within axis are normal. There are inferior Q waves. No other evidence of ischemia or infarction. EKG was reviewed interpreted by myself. [] Radiology/Procedures: Radiology/Procedures: PROCEDURE: PORTABLE CHEST 1V EXAMINATION: XR CHEST 1V CLINICAL HISTORY: Chest/left upper quadrant pain. EXAM DATE/TIME: 09/18/2021 10:35 PM COMPARISON: None FINDINGS: Lines, Tubes, and Devices: None. Cardiomediastinal Silhouette: Normal heart size. Aortic atherosclerotic calcification. Lungs and Pleura: No evidence of focal airspace consolidation, pleural effusion, or pneumothorax. Left basilar old calcified granuloma. Bones and Soft Tissues: Degenerative changes in the thoracic spine. IMPRESSION: No evidence of acute cardiopulmonary abnormality. Electronically signed by: Cezar Arriaga DO (09/18/2021 10:59 PM) [facility] Course & Med Decision Making: Course & Med Decision Making Patient remained hemodynamically stable in emergency department. He is evaluated the bedside physical exam. EKG shows no evidence of any acute ischemic changes. Troponin negative x2. Chest x-ray is clear. CT shows no acute findings. He does have a 9 mm lung nodule as well as's kidney cyst that will need following up. We will discuss this with his PCP. His UA is concerning for a UTI. He has been given a gram of Rocephin here in the emergency department. We will discharge him home with a 10-day course of cefdinir. Tirso Disclaimer: Tirso Disclaimer: This electronic medical record was generated, in whole or in part, using a voice recognition dictation system. Departure Departure Impression: Primary Impression: UTI (urinary tract infection) Additional Impression: LUQ abdominal pain Disposition: HOME / SELF CARE / HOMELESS Condition: IMPROVED Referrals: NON,STAFF (PCP) Patient Instructions: Abdominal Pain, Urinary Tract Infection Scripts Cefdinir (CEFDINIR) 300 Mg Capsule 1 CAP PO BID, #20 CAP Prov: KATHERINE WEISS MD 09/19/21 KATHERINE WEISS MD September 19, 2021 02:04
--- NOTE | 2021-09-23 07:47 | EKG ---
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
--- NOTE | 2021-09-23 07:47 | EKG ---
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
== END 2021-09-19 02:14 | disposition home or self-care (01) ==
LOC: ER 22:10
DX: N39.0 Urinary tract infection, site not specified (principal); J44.9 Chronic obstructive pulmonary disease, unspecified; E11.9 Type 2 diabetes mellitus without complications; I10 Essential (primary) hypertension; I25.10 Atherosclerotic heart disease of native coronary artery without angina pectoris; Z87.891 Personal history of nicotine dependence
CPT/HCPCS: 36415; 71045; 74176; 80053; 81001; 83690; 83880; 84484; 85025; 93005; 96374; 99284; J0696